=== PATIENT | female | born 1975 | race Caucasian/White ===

== ENCOUNTER 2020-10-17 11:32 | Day surgery (SDC) | payer BC, SELFPAY ==
--- NOTE | ~2020-10-17 | US_ITS ---
US OB <=14 wk fetus w TV DATE: 10/17/2020 13:10 INDICATION: Vaginal spotting TECHNIQUE: Real-time imaging COMPARISON: None FINDINGS: The uterus measures 9.6 cm height and 6.9 cm AP and 6.5 cm transverse dimension. Gestational sac size is consistent with estimated gestational age of 6 weeks 6 days +/- 4 days. Howev er, there is no evidence of pole. The gestational sac is somewhat flattened and pointed. Incomp lete or impending is suggested. Consider follow-up ultrasound examination. The ovaries are unremarkable. No free pelvic fluid collection is identified. IMPRESSION: No pole identified within gestational sac, which is somewhat flattened and pointed; impending is suspected. Consider follow-up ultrasound. Reviewed, dictated and finalized at [facility] Reviewed, dictated and finalized at [facility] TION SUPERVISOR IMPRESSION: No pole identified within gestational sac, which is somewhat flattened and pointed; impending is suspected. Consider follow-up ultr asound.
[2020-10-17 11:36] VITALS: BP 135/75; PULSE 114; RESP 20; TEMP 36.8; O2SAT 99
--- NOTE | 2020-10-17 12:20 | PC.NURSE ---
ATTEMPT TO DOPPLER HEART TONES. UNABLE TO
--- NOTE | 2020-10-17 12:24 | ED.FEMALEGU ---
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 Patient is 8, para 3, 4, is 10-1/2 weeks . 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 History of hypothyroidism. Patient denies any fever or any Covid symptoms. Related Data Home Medications Medication Instructions Recorded Confirmed levothyroxine 75 mcg PO DAILY 10/17/20 10/17/20 Allergies Allergy/AdvReac Type Severity Reaction Status Date / Time Penicillins Allergy Unknown Unknown Verified 10/17/20 11:42 Review of Systems Review of Systems: Narrative: CONSTITUTIONAL: Denies fever, chills, or sweats. EYES: Denies visual changes, redness, or discharge. ENT: Denies rhinorrhea, congestion, sore throat, or otalgia. CARDIOVASCULAR: Denies chest pain, palpitations, or edema. RESPIRATORY: Denies cough or dyspnea. GASTROINTESTINAL: Denies abdominal pain, nausea, vomiting, or diarrhea. GENITOURINARY: Denies dysuria or hematuria. SKIN: Denies rash or itching. MUSCULOSKELETAL: Denies back pain, joint pain, or myalgia. NEUROLOGIC: Denies headache, numbness, or weakness. PSYCHIATRIC: Denies anxiety or depression. PMFSH Past Medical History Medical History Hypothyroidism Family History Family History Other Family history of cardiovascular disease Social History Social History Smoking status: Never smoker Alcohol intake: never Gender identity (if verbalized by the patient): Female Exam Narrative: Exam Narrative: General appearance: Well-developed, well-nourished Skin: Normal color Chest and respiratory: Airway patent, no respiratory distress, no accessory muscle use Heart: Regular rate/rhythm Abdomen: Soft, nontender, no organomegaly, quiet bowel sounds Vascular: Normal peripheral pulses, normal capillary refill. Musculoskeletal: Normal range of motion, nontender back Neurologic: Alert and oriented ?3, FIGHT MANAGER is normal as tested, no gross motor deficit : External Female Exam: normal external appearance Speculum Exam - Vagina: normal appearance of the vagina and vaginal bleeding (Fresh red bright excessive bleeding with blood clots) Speculum Exam - Cervix: Cervical os open Bimanual Exam- Adnexa, other: tender (Left tenderness) on the left Course Course Emergency Course: Stable Consultations Consultation #1: Dr. Cedric Eldridge will take patient to the OR for D&C Date: 10/17/20 Time: 14:36 Vital Signs Vital signs: Vital Signs Temperature 36.8 C 10/17/20 11:36 Pulse Rate 114 H 10/17/20 11:36 Respiratory Rate 20 10/17/20 11:36 Blood Pressure 135/75 10/17/20 11:36 Pulse Oximetry 99 10/17/20 11:36 Temperature 36.8 C 10/17/20 11:36 Pulse Rate 76 10/17/20 15:50 Respiratory Rate 20 10/17/20 15:50 Blood Pressure 119/76 10/17/20 15:50 Pulse Oximetry 97 10/17/20 15:50 MDM - Female Genitourinary MDM Narrative Medical decision making narrative: Spotting during . History of x4. Labs, pelvic ultrasound ordered. Differential Diagnosis Differential diagnosis: Likely other (Threatened , cervicitis) Lab Data Result diagrams: 10/17/20 12:35 Labs: Lab Results 10/17/20 10/17/20 10/17/20 Range/Units 12:33
[2020-10-17 12:52] LABS: Basophils Percent Auto 0.3 % (0.2-1.2); Eosinophils Absolute Auto 0.1 K/mm3 (0-0.3); Eosinophils Percent Auto 1.3 % (0-4.4); Hematocrit 42.1 % (37.0-47.0); Hemoglobin 14.6 g/dL (12.0-15.0); Immature Granulocyte Absolute 0.08 K/mm3 (0.00-0.031); Immature Granulocyte Percent A 0.7 % (0-0.5); Lymphocytes Absolute Auto 0.94 K/mm3 (0.9-3.2); Lymphocytes Percent Auto 8.7 % (18.3-44.2); Mean Corpuscular HGB Conc 34.7 g/dl (32-36); Mean Corpuscular Hemoglobin 31.3 pg (26-34); Mean Corpuscular Volume 90.3 fl (80-100); Mean Platelet Volume 9.7 fl (7.4-10.4); Monocytes Absolute Auto 0.8 K/mm3 (0.1-0.6); Monocytes Percent Auto 7.3 % (2.6-8.5); Neutrophils Absolute Auto 8.9 K/mm3 (1.3-6.7); Neutrophils Percent Auto 81.7 % (45.5-73.1); Platelet Count Result 259 k/mm3 (150-375); Red Blood Count 4.66 M/mm3 (4.2-5.4); Red Cell Distribution Width 12.1 % (11.5-14.5); White Blood Count 10.9 K/mm3 (4.5-10.0)
[2020-10-17] MEDS: SODIUM CHLORIDE 0.9% IV 1,000 ML 999 ML IV CONT (14:41)
--- NOTE | 2020-10-17 14:58 | PM.IMHP ---
H&P: HPI History of Present Illness Date/Time: 10/17/20 14:58 Chief complaint: 10 wks preg, spotting Narrative: Radha Reyna is a 45 year old female 8 para 3 043 who notes her last menstrual period was 10 weeks ago, presents with vaginal bleeding. She had some spotting and that has increased to passing clots and debris. Ultrasound shows a 7 week IUP with no demonstrable pole. She is admitted for suction dilatation and curettage. Risks and benefits reviewed Review of Systems Review of Systems: All systems reviewed & are unremarkable except as noted in HPI and below PMFSH Past Medical History Medical History Hypothyroidism Family History Family History Other Family history of cardiovascular disease Social History Social History Smoking status: Never smoker Alcohol intake: never Gender identity (if verbalized by the patient): Female Meds Home Medications and Allergies Home Medications Medication Instructions Recorded Confirmed Type levothyroxine 75 mcg PO DAILY 10/17/20 10/17/20 History Allergies Allergy/AdvReac Type Severity Reaction Status Date / Time Penicillins Allergy Unknown Unknown Verified 10/17/20 11:42 Vital Signs Vital Signs - 24 hr 10/17/20 11:36 Temperature 98.2 F Pulse Rate 114 H Respiratory Rate 20 Blood Pressure 135/75 Pulse Oximetry 99 Exam Const: General: no acute distress Eyes: General: appearance normal, both eyes and all related structures Neck: Neck: supple and no JVD Thyroid: thyroid normal Resp: Effort & Inspection: normal respiratory effort Auscultation: clear to auscultation bilaterally Cardio: Rate: regular rate Rhythm: regular rhythm GI: Inspection: non-distended GI Palp: Yes Soft to palpation, No Tenderness to palpation present (GI) and No Guarding due to palpation present (GI) Auscultation: normal bowel sounds : External Female Exam: normal external appearance Speculum Exam - Vagina: normal appearance of the vagina and vaginal bleeding Speculum Exam - Cervix: normal appearance of the cervix Bimanual exam- vagina & uterus: enlarged Skin: General skin exam: no rashes or lesions noted Extrem: General: normal to inspection and no edema Psych: Mental Status: mental status grossly normal Affect: normal affect H&P: Results Labs Labs: Short CBC 10/17/20 Range/Units 12:35 WBC 10.9 H (4.5-10.0) K/mm3 Hgb 14.6 (12.0-15.0) g/dL Hct 42.1 (37.0-47.0) % Plt Count 259 (150-375) k/mm3 Assessment and Plan Additional Plan impression: 1St trimester incomplete AB Plan: Suction dilatation and curettage
[2020-10-17 15:05] VITALS: BP 130/85; PULSE 82; RESP 20; O2SAT 96
[2020-10-17] MEDS: diazePAM INJ (*CRX) 10 MG/2 ML SYRINGE 5 MG IV PUSH (15:19)
[2020-10-17 15:50] VITALS: BP 119/76; PULSE 76; RESP 20; O2SAT 97
--- NOTE | 2020-10-17 15:50 | WPDHPUPDATE1 ---
History and Physical Update Update Date/Time: 10/17/20 15:50 History and Physical has been reviewed, including an updated exam of the patient. There are NO changes in the patient's condition. Risks, benefits, and alternatives have been discussed and questions answered. Patient agrees to proceed with procedure.
--- NOTE | 2020-10-17 16:01 | WPDANESEPP ---
Anes - Eval Pre Procedure Procedure: Operation Date: 10/17/20 16:00 Proposed Procedures p D&C Suction and Sharp - Lito Cade MD Date/Time: 10/17/20 16:01 Pre Op Diagnosis: 10 wks preg, spotting Patient Data Age: 45 Gender: F Height: 5 ft 4 in Weight: 69.9 kg Last Vital Signs Temp 36.8 C 10/17/20 11:36 Pulse 76 10/17/20 15:50 Resp 20 10/17/20 15:50 BP 119/76 10/17/20 15:50 Pulse Ox 97 10/17/20 15:50 Allergies Allergy/AdvReac Type Severity Reaction Status Date / Time Penicillins Allergy Unknown Unknown Verified 10/17/20 11:42 Home Medications Medication Instructions Recorded Confirmed Type hydrocodone-acetaminophen [[place]] 1 tablet PO Q4H PRN #20 tablet 10/17/20 Rx levothyroxine 75 mcg PO DAILY 10/17/20 10/17/20 History Laboratory Tests 10/17/20 10/17/20 10/17/20 12:33 12:35 12:35 WBC 10.9 K/mm3 H K/mm3 (4.5-10.0) RBC 4.66 M/mm3 M/mm3 (4.2-5.4) Hgb 14.6 g/dL g/dL (12.0-15.0) Hct 42.1 % % (37.0-47.0) MCV 90.3 fl fl (80-100) MCH 31.3 pg pg (26-34) MCHC 34.7 g/dl g/dl (32-36) RDW 12.1 % % (11.5-14.5) Plt Count 259 k/mm3 k/mm3 (150-375) MPV 9.7 fl fl (7.4-10.4) Immature Gran % (Auto) 0.7 % H % (0-0.5) Neut % (Auto) 81.7 % H % (45.5-73.1) Lymph % (Auto) 8.7 % L % (18.3-44.2) [place] % (Auto) 7.3 % % (2.6-8.5) Eos % (Auto) 1.3 % % (0-4.4) Baso % (Auto) 0.3 % % (0.2-1.2) Lymph # (Auto) 0.94 K/mm3 K/mm3 (0.9-3.2) [place] # (Auto) 0.8 K/mm3 H K/mm3 (0.1-0.6) Eos # (Auto) 0.1 K/mm3 K/mm3 (0-0.3) Baso # (Auto) 0.0 K/mm3 K/mm3 (0.0-0.1) Abs Immat Gran (auto) 0.08 K/mm3 H K/mm3 (0.00-0.031) Absolute Neuts (auto) 8.9 K/mm3 H K/mm3 (1.3-6.7) Absolute Nucleated RBC 0.0 K/mm3 K/mm3 (0.0-0.012) Nucleated RBC % 0.0 % % (0.0-0.2) Beta HCG, Quant 3181.10 mIU/ML mIU/ML Blood Type O Negative Antibody Screen Negative Screen Not Reportable Baby's Blood Type Not Reportable Baby's ANAI Not Reportable Doses of RhIg Required 1 Patient hx anesthesia problems: none Family hx anesthesia problems: none PMFSH Past Medical History Medical History Hypothyroidism Family History Family History Other Family history of cardiovascular disease Social History Social History Smoking status: Never smoker Alcohol intake: never Gender identity (if verbalized by the patient): Female Exam Day of Procedure 10/17/20 16:01
--- NOTE | 2020-10-17 16:05 | WPDANESEFPP ---
Anes - Eval Final PreProcedure Day of Procedure 10/17/20 16:05 Patient weight: overweight Heart: regular rate and rhythm Lungs: clear to auscultation and normal air movement Airway: Mallampati scale class III Neurological: alert and oriented Last oral intake: >/= 8 hours ASA classification: II Emergent: yes Anesthetic plan: proceed Anesthesia type and monitoring: general GIVS and standard monitoring Informed Consent: The patient's anesthetic plan and its attendant risks and benefits were discussed with the patient/family/POA. Questions were solicited and answers provided to the satisfaction of the patient/family/POA.
--- NOTE | 2020-10-17 16:25 | PM.PROC ---
Procedure Note - Detailed Date of procedure: 10/17/20 Pre-op diagnosis: 10 wks preg, spotting Surgeon: Lito Cade MD Postop diagnosis: 10 week incomplete AB Procedure: Suction dilatation and curettage EBL: 30cc anesthesia: IV sedation local Findings: Products of conception Complications: None Description of procedure: The patient was prepped and draped in the normal sterile fashion and placed in the dorsal lithotomy position. Under excellent IV sedation weighted speculum placed in posterior fornix of vagina. Anterior lip of the cervix grasped with single-tooth tenaculum. 2.5cc of 1% xylocaine anesthesia placed at 2, 4, 8, 10:00 a.m. respectively the cervix. Uterus sounded to 10cm. Serial dilatation fragmented dilators performed followed by passes of the 10. Suction curette. A large amount of products conception were noted. When a good grating sound was heard the to procedure was terminated. Blood loss was estimated at 30 all sponge, needle, instrument counts were correct. There were no immediate complications
[2020-10-17 16:27] VITALS: BP 115/70; PULSE 80; RESP 12; O2SAT 98
[2020-10-17] MEDS: LACTATED RINGERS 1,000 ML 30 ML IV CONT (16:53)
[2020-10-17 16:55] VITALS: BP 127/56; PULSE 73; RESP 16
[2020-10-17 17:05] VITALS: BP 127/69; PULSE 73; RESP 16
[2020-10-17] MEDS: RHO(D) IMMUNE GLOBULIN 300 MCG SYRINGE IM (17:15)
--- NOTE | 2020-10-17 17:35 | SUR.PHASEII ---
1715-AMBULATED TO BR TO VOID, STANDBY ASSIST.
== END 2020-10-17 17:30 | disposition home or self-care (01) ==
LOC: ANHED 14:37 → ANHSURGERY 15:15
PROVIDERS: Emergency Provider Emergency Medicine; Visit Provider Obstetrics & Gynecology
PROC: (CPT 59812; principal; 2020-10-17 16:00)
DX: O03.4 Incomplete spontaneous abortion without complication (principal); E03.9 Hypothyroidism, unspecified
CPT/HCPCS: 59812; 36415; 76801; 76817; 84702; 85025; 85461; 88305; 90384; 96361; 96374; 99285; A9270; J2250; J2704; J2790; J3010; J3360; J7030; J7120